=== PATIENT | female | born 1985 | race Caucasian/White ===

== ENCOUNTER 2016-07-08 05:23 | Emergency (ER) | payer OTHER ==
[~2016-07-08] VITALS: Ht 167.6 cm; Wt 90.7 kg
[~2016-07-08 05:23] MED LIST: ALPR1TAB2; DIAZ10TA PO; LORA-205; QUET100T38 PO
[2016-07-08] MEDS ORDERED: LORazepam 2MG/ML-1ML VIAL ONE (06:32)
[2016-07-08] MEDS ORDERED: ONDANSETRON HCL 4 MG/2 ML VIAL ONE (06:32)
[2016-07-08] MEDS ORDERED: ONDANSETRON HCL 4 MG/2 ML VIAL IV ONE (06:45)
[2016-07-08] MEDS ORDERED: LORazepam 2MG/ML-1ML VIAL IV ONE (06:45)
[2016-07-08] MEDS ORDERED: SODIUM CHLORIDE 0.9% 1,000 ML IV ONE ×3 (07:17→09:59)
[2016-07-08] MEDS ORDERED: DIAZEPAM 5 MG/ML 2ML SYRG IV ONE ×2 (07:30→09:00)
[2016-07-08] MEDS ORDERED: METOCLOPRAMIDE HCL 5MG/ml INJ 2ml VIAL IV ONE (07:30)
[2016-07-08 07:45] LABS: Hematocrit 47.2 % (36.0-46.0); Hemoglobin 16.7 g/dL (12.2-16.2); Mean Corpuscular Hgb Conc. 35.5 g/dL (32.0-36.0); Mean Corpuscular Volume 87.6 fL (80.0-100.0); Mean Platelet Volume 9.1 fL (7.4-10.4); Platelet Count (auto) 187 10^3/uL (140-450); Red Cell Distribution Width 12.9 % (11.6-16.0); SUSPECT VIEW TRANSMISSION
[2016-07-08 07:56] LABS: Metamyelocytes % 0; Myelocytes % 0; Promyelocytes % 0; Reactive Lymphocytes 0
[2016-07-08 08:03] LABS: Albumin 4.3 g/dL (3.4-5.0); Bilirubin, Total 0.6 mg/dL (0.2-1.0); Calcium 9.6 mg/dL (8.5-10.1); Total Protein 8.6 g/dL (6.4-8.2)
[2016-07-08] MEDS ORDERED: metroNIDAZOLE 500MG/100ML 100 ML IV ONE (08:45)
[2016-07-08] MEDS ORDERED: VANCOMYCIN 1GM/250ML D5W 250 ML IV ONE (08:45)
[2016-07-08 09:02] LABS: Platelet Clumps MANY; Platelet Estimate Adequate
[2016-07-08 09:49] LABS: Lactic Acid w/Reflex 3.9 mmol/L (0.4-2.0)
[2016-07-08 09:50] LABS: REFLEX LACTIC ACID YES OR NO YES
[2016-07-08] MEDS ORDERED: SODIUM CHLORIDE 0.9% 250 ML IV ONE (09:59)
[2016-07-08 10:40] LABS: Amylase 69 U/L (25-115)
[2016-07-08] MEDS ORDERED: HYDROmorphone HCL 2 MG/ML VL IV ONE ×2 (10:45→13:00)
[2016-07-08 13:16] VITALS: BP 125/72
== END 2016-07-08 13:29 | disposition short-term general hospital (02) ==
LOC: EDBD 05:23 → ER 05:28
DX: A41.9 Sepsis, unspecified organism (principal); K52.9 Noninfective gastroenteritis and colitis, unspecified; J45.909 Unspecified asthma, uncomplicated; Z88.1 Allergy status to other antibiotic agents; Z79.899 Other long term (current) drug therapy
CPT/HCPCS: 36415; 71010; 74176; 80053; 82150; 83605; 83690; 85007; 85027; 87040; 96361; 96365; 96367; 96375; 96376; 99285; J1170; J2060; J2405; J2765; J3360; J3370; J3490; J7030